=== PATIENT | male | born 1970 | race Caucasian/White ===

== ENCOUNTER 2018-08-27 08:31 | Emergency (ER) | payer MEDICARE ==
[2018-08-27] MEDS ORDERED: Ketorolac 30 MG/ML SDV IVPUSH ONE (09:06)
[2018-08-27] MEDS ORDERED: diphenhydrAMINE 50 MG/ML SDV IVPUSH ONE ×2 (09:06→10:38)
[2018-08-27] MEDS ORDERED: HYDROmorphone 1 MG/ML Syringe IVPUSH ONE ×2 (09:06→10:38)
--- NOTE | 2018-08-27 09:13 | EDM.PDOC ---
ED HPI GENERAL MEDICAL PROBLEM - General Chief Complaint: Headache Stated Complaint: CLUSTER HEADACHE Time Seen by Provider: 08/27/18 08:50 Source of Information: Reports: Patient, Family History Limitations: Reports: No Limitations - History of Present Illness INITIAL COMMENTS - FREE TEXT/NARRATIVE: 48-year-old male with chronic headaches, numerous high-level consultations including [facility], [facility], who apparently has serious side effects to Imitrex, Compazine, verapamil, and other traditional cluster headache treatments. He was maintained on oxycodone extended release 10 mg twice daily for years, but recently his insurance company is no longer providing coverage. They have tried dissolvable Suboxone over the past week but it's not working and he has significant nausea and vomiting. He is in today for breakthrough treatment. The has a "cocktail" that he used to receive a regular basis in the emergency room prior to receiving regular oxycodone. He was here 2 years ago and received Toradol, Benadryl and Dilaudid which will be repeated. The headache is frontal, somewhat worse on the left and did not respond to high flow oxygen at home. Improves with: Reports: None Associated Symptoms: Reports: Nausea/Vomiting. Denies: Confusion, Chest Pain, Fever/Chills, Shortness of Breath Headache Pain Score (Numeric/FACES): 8 - Related Data Allergies Allergy/AdvReac Type Severity Reaction Status Date / Time buprenorphine [From Suboxone] Allergy Vomiting Verified 08/27/18 08:48 naloxone [From Suboxone] Allergy Vomiting Verified 08/27/18 08:48 ondansetron Allergy Nausea Verified 08/27/18 08:48 Penicillins Allergy Rash Verified 08/27/18 08:48 prochlorperazine Allergy Hyperactivi Verified 08/27/18 08:48 [From Compazine] ty prochlorperazine edisylate Allergy Hyperactivi Verified 08/27/18 08:48 [From Compazine] ty prochlorperazine maleate Allergy Hyperactivi Verified 08/27/18 08:48 [From Compazine] ty Sulfa (Sulfonamide Allergy Rash Verified 08/27/18 08:48 Antibiotics) Home Meds: Home Meds Ketorolac [Toradol] 10 mg PO Q6H PRN 09/06/15 [History] Omeprazole 20 mg PO DAILY 09/06/15 [History] Promethazine [Phenadoz] 25 mg PO Q8HR PRN 09/06/15 [History] Topiramate [Topamax] 200 mg PO BID 09/06/15 [History] traZODone 150 mg PO BEDTIME 09/06/15 [History] Divalproex Sodium [Depakote] 500 mg PO DAILY 08/27/18 [History] Past Medical History Gastrointestinal History: Reports: GERD Other Genitourinary History: vesticular procedure Neurological History: Reports: Headaches, Chronic, Seizure Other Neuro History: cluster - Past Surgical History GI Surgical History: Reports: Cholecystectomy, Hernia, Inguinal, Hernia Repair/ Other Other Musculoskeletal Surgeries/Procedures:: knee surgery Social & Family History - Family History Cardiac: Reports: Hypertension Endocrine/Metabolic: Reports: Diabetes, type II - Tobacco Use Smoking Status *Q: Current Every Day Smoker Years of Tobacco use: 25 Packs/Tins Daily: 0.5 - Caffeine Use Caffeine Use: Reports: Coffee - Recreational Drug Use Recreational Drug Use: No ED ROS GENERAL - Review of Systems Review Of Systems: See Below Constitutional: Denies: Fever, Chills HEENT: Denies: Vision Change Respiratory: Denies: Shortness of Breath GI/Abdominal: Reports: Nausea, Vomiting. Denies: Abdominal Pain Neurological: Reports: Headache. Denies: Confusion, Paresthesia - Physical Exam Exam: See Below Exam Limited By: No Limitations General Appearance: Alert, Moderate Distress Eye Exam: Bilateral Eye: EOMI, PERRL, Other (Significantly photophobic) Head Exam: Atraumatic Respiratory/Chest: No Respiratory Distress Neuro Exam (Abbreviated): Alert, Oriented, No Motor/Sensory Deficits, Other ( Able to ambulate into the bathroom without problem, no asymmetric weakness) Course - Vital Signs Last Recorded V/S: Last Vital Signs Temp 98.1 F 08/27/18 08:47 Pulse 67 08/27/18 11:42 Resp 14 08/27/18 11:42 BP 111/67 08/27/18 11:42 Pulse Ox 96 08/27/18 11:42 - Orders/Labs/Meds Meds: Medications Discontinued Medications Generic Name Dose Route Start Last Admin Trade Name Freq PRN Reason Stop Dose Admin Diphenhydramine HCl 25 mg 08/27/18 09:06 08/27/18 09:20 Benadryl IVPUSH 08/27/18 09:07 25 mg ONETIME ONE Administration Diphenhydramine HCl 25 mg 08/27/18 10:38 08/27/18 11:04 Benadryl IVPUSH 08/27/18 10:39 25 mg ONETIME ONE Administration Hydromorphone HCl 1 mg 08/27/18 09:06 08/27/18 09:25 Dilaudid IVPUSH 08/27/18 09:07 1 mg ONETIME ONE Administration Hydromorphone HCl 1 mg 08/27/18 10:38 08/27/18 11:07 Dilaudid IVPUSH 08/27/18 10:39 1 mg ONETIME ONE Administration Sodium Chloride 1,000 mls @ 1,000 mls/hr 08/27/18 09:15 08/27/18 09:17 Normal Saline IV 1,000 mls/hr ASDIRECTED ADAMS Administration Ketorolac Tromethamine 30 mg 08/27/18 09:06 08/27/18 09:23 Toradol IVPUSH 08/27/18 09:07 30 mg ONETIME ONE Administration - Re-Assessments/Exams Free Text/Narrative Re-Assessment/Exam: 08/27/18 09:16 After long discussion of possible treatments, it was concluded the treatment options are very limited due to his lack of response to previous treatments and side effects. An IV was started, he'll be given 1 L of normal saline, 30 mg of Toradol, 25 mg of IV Benadryl and 1 mg of IV Dilaudid. The Dilaudid will likely need to be repeated before discharge. 08/27/18 10:45 After 1 hour of rest the patient still had significant discomfort and nausea but no vomiting, he had improved. One more milligram of Dilaudid and 25 mg of Benadryl were given. No further fluids. 08/27/18 12:21 1 hour after additional medications the patient was much better and was hungry. His said this is a "good sign". He was discharged. Departure - Departure Time of Disposition: 12:29 Disposition: Home, Self-Care 01 Clinical Impression: Cluster headache syndrome - Discharge Information Instructions: Cluster Headache, [id number] Referrals: Marcus Trujillo MD [Primary Care Provider] - Forms: ED Department Discharge Care Plan Goals: Rest today, continue medications as prescribed if beneficial and discuss any further treatment with your primary providers.
[2018-08-27] MEDS ORDERED: Sodium Chloride 0.9% 1,000 ML IV SCH (09:15)
[2018-08-27 12:48] VITALS: BP 111/67
== END 2018-08-27 12:29 | disposition home or self-care (01) ==
LOC: JP.ED 08:31
DX: G44.009 Cluster headache syndrome, unspecified, not intractable (principal); K21.9 Gastro-esophageal reflux disease without esophagitis; F17.210 Nicotine dependence, cigarettes, uncomplicated; Z88.0 Allergy status to penicillin; Z88.2 Allergy status to sulfonamides; Z88.8 Allergy status to other drugs, medicaments and biological substances; Z79.899 Other long term (current) drug therapy
CPT/HCPCS: 96361; 96374; 96375; 96376; 99283; J1170; J1200; J1885; J7030

== ENCOUNTER 2020-03-24 08:23 | Day surgery (SDC) | payer MEDICARE ==
[2020-03-24] MEDS ORDERED: Sodium Chloride 0.9% 1,000 ML IV SCH (09:45)
[2020-03-24] MEDS ORDERED: fentaNYL 100 MCG/2 ML SDV ONE (10:11)
[2020-03-24] MEDS ORDERED: Propofol 200 MG/20 ML SDV ONE (10:11)
[2020-03-24] MEDS ORDERED: Midazolam 1 MG/ML 2 ML SDV ONE (10:24)
[2020-03-24 12:37] VITALS: BP 112/72; PULSE 55
--- NOTE | 2020-03-24 14:52 | OR ---
DATE OF PROCEDURE: 03/24/2020 SURGEON: Anthony Rojas MD PROCEDURE: Colonoscopy. FINDINGS: Normal colonoscopy. PREOPERATIVE DIAGNOSIS: Family history of colorectal cancer. POSTOPERATIVE DIAGNOSIS: Family history of colorectal cancer. RISKS: Risks, benefits, alternatives, and limitations including, but not limited to infection, bleeding, and perforation were explained to the patient, who wished to proceed. We also discussed false positives and false negatives. PROCEDURE IN DETAIL: The patient was placed in left lateral decubitus position. Digital rectal exam was performed without abnormality. Scope was introduced and advanced atraumatically to the ileocecal valve. A photo was taken. The scope was brought back to the ascending, transverse, descending colon, and retroflexed. No evidence of old or new blood. No masses. No polyps. No diverticulosis. No colitis. No abnormalities on retroflexion. The prep was moderately acceptable, approximately 90% luminal surface could be seen. Greater than 8 minutes was spent removing the scope. Anthony Rojas MD /[id number]
== END 2020-03-24 12:38 | disposition home or self-care (01) ==
LOC: JP.SDS 08:23
PROVIDERS: ATTEND Surgery
DX: Z12.11 Encounter for screening for malignant neoplasm of colon (principal); Z80.0 Family history of malignant neoplasm of digestive organs; F17.200 Nicotine dependence, unspecified, uncomplicated
CPT/HCPCS: G0105; J2250; J2704; J3010; J7030